=== PATIENT | male | born 1980 | race Asian ===

== ENCOUNTER 2018-10-15 00:18 | Emergency (ER) | payer BC, OTHER ==
[2018-10-15 00:26] VITALS: BP 160/99
--- NOTE | 2018-10-15 00:52 | ED Physician Documentation ---
History of Present Illness - Stated complaint Stated Complaint: THROAT PX - Chief complaint Chief Complaint: General - History obtained from History obtained from: Patient - History of Present Illness Timing: How many days ago (5) Pain level max: 0 Pain level now: 0 - Additonal information Additional information: 38-year-old male with history of hypertension here with concern about a lump on his right groin which he noticed 5 days ago and had decrease in size and today a lump on the right side of his neck. Patient expresses concern and anxiety about the lumps because he had unprotected intercourse 1-1/2 weeks ago. He denied oral sex. He went to an urgent center this week and they were not concerned about the lumps. He is here tonight because he cannot sleep and its worrying him. Denies any fever, Pain, discharge. Review of Systems Ten Systems: 10 systems reviewed and negative Constitutional: denies: Fever, Chills, Myalgias Throat: denies: Oral lesions / sores, Sore throat, Swollen tonsils GI: denies: Abdominal Pain : denies: Dysuria Skin: denies: Rash, Lesions PD PAST MEDICAL HISTORY - Past Medical History Past Medical History: No - Past Surgical History Past Surgical History: Yes Ortho: Shoulder arthroplasty HEENT: Tonsil/Adenoidectomy - Allergies Allergies/Adverse Reactions: Allergies Allergy/AdvReac Type Severity Reaction Status Date / Time No Known Drug Allergies Allergy Verified 10/15/18 00:25 - Social History Does the pt smoke?: No Smoking Status: Never smoker Does the pt drink ETOH?: Yes Does the pt have substance abuse?: No - Immunizations Immunizations are current?: Yes - POLST Patient has POLST: No PD ED PE NORMAL - Vitals Vital signs reviewed: Yes - General General: Alert and oriented X 3, No acute distress, Well developed/nourished - HEENT HEENT: Moist mucous membranes, Pharynx benign - Neck Neck: Supple, no meningeal sign, Other (1 small mildly tender right anterior cervical adenopathy) - Cardiac Cardiac: RRR, No murmur - Respiratory Respiratory: No respiratory distress, Clear bilaterally - Abdomen Abdomen: Normal bowel sounds, Soft, Non tender, Non distended - Male Male : Gauge Maker present, Other (Circumcised penis without any lesions nor tenderness. Nontender scrotum and testicle. No erythema no lesions no swelling. Right groin with almond shape mildly tender 1 lymph node approximate less than 0.5 cm in length. No erythema in the perineal area nor inguinal area. No hernia.) - Derm Derm: Warm and dry - Extremities Extremities: No deformity - Neuro Neuro: Alert and oriented X 3 - Psych Psych: Normal mood, Normal affect Results - Vitals Vitals: Vital Signs - 24 hr 10/15/18 00:22 Temperature 36.6 C Heart Rate 66 Respiratory 18 Rate Blood Pressure 160/99 H O2 Saturation 99 Oxygen O2 Source Room air PD MEDICAL DECISION MAKING - ED course Complexity details: considered differential (Viral syndrome, STD exposure), d/w patient (Discussed with patient labs will not show any results for about a couple or so days. Patient understood this and he still wants to be tested for STD. Discussed lymph nodes and how it function in her body. Instructed to follow-up with the primary doctor and get a referral to a specialist if his lymph nodes continued to enlarge and tender. If worse he will return to the emergency room.) Departure - Departure Disposition: 01 Home, Self Care Clinical Impression: Lymphadenopathy Condition: Stable Instructions: ED Chlamydia GC Poss Culture Pend Comments: Your lab work cultures are pending and if any are positive you will be hearing from us. Follow-up with your primary doctor for reevaluation in 1-2 weeks. Get a referral to a specialist if your lymph nodes continue to enlarge. If worse return to the emergency room.
[2018-10-16 10:36] LABS: HIV AG/AB 4TH GEN NON-REACTIVE (NON-REACTIVE)
== END 2018-10-15 01:04 | disposition home or self-care (01) ==
LOC: ED 00:18
DX: R59.1 Generalized enlarged lymph nodes (principal)
CPT/HCPCS: 36415; 86780; 87389; 87491; 87591; 99282

== ENCOUNTER 2022-05-07 08:00 | Outpatient (CLI) | payer MEDICAID ==
[2022-05-07 18:06] LABS: BILIRUBIN,URINE NEGATIVE (NEGATIVE); GLUCOSE, URINE (UA) NEGATIVE (NEGATIVE); KETONES,URINE (UA) NEGATIVE (NEGATIVE); LEUKOCYTE ESTERASE, URINE NEGATIVE (NEGATIVE); NITRITE,URINE NEGATIVE (NEGATIVE); OCCULT BLOOD,URINE NEGATIVE (NEGATIVE); PH,URINE 6.5 PH (5.0-7.5); PROTEIN,URINE NEGATIVE (NEGATIVE); UROBILINOGEN,URINE 0.2 (NORMAL) E.U./dL (NORMAL)
[2022-05-07 18:10] LABS: CLARITY,URINE CLEAR (CLEAR)
[2022-05-07 18:22] LABS: BACTERIA,URINE None Seen /HPF (None Seen); RBC,URINE None Seen /HPF (0-5); SQUAMOUS EPITHELIAL CELL,UR RARE Squamous (<= Few); WBC,URINE 0-3 /HPF (0-3)
[2022-05-08 00:10] LABS: CHLAMYDIA TRACHOMATIS DNA NEGATIVE (NEGATIVE); NEISSERIA GONORRHOEAE DNA NEGATIVE (NEGATIVE)
[2022-05-08 04:08] LABS: RPR Non Reactive (Non Reactive)
[2022-05-08 05:10] LABS: HCV AB 0.1 s/co ratio (0.0-0.9); HIV SCREEN 4TH GENERATION Non Reactive (Non Reactive); HSV 2 IGG TYPE SPEC <0.91 index (0.00-0.90)
[2022-05-08 20:07] LABS: HSV IGM I/II COMBINATION <0.91 Ratio (0.00-0.90)
== END 2022-05-07 23:59 | disposition home or self-care (01) ==
LOC: LAB.N 08:00
PROVIDERS: ATTEND Nurse Practitioner
DX: Z11.3 Encounter for screening for infections with a predominantly sexual mode of transmission (principal)
CPT/HCPCS: 36415; 81001; 86592; 86695; 86696; 86803; 87086; 87389; 87491; 87536; 87591; 87661

== ENCOUNTER 2023-09-07 07:45 | Outpatient (CLI) | payer BC, MEDICAID ==
[2023-09-07 21:03] LABS: CHLAMYDIA TRACHOMATIS DNA NEGATIVE (NEGATIVE); NEISSERIA GONORRHOEAE DNA NEGATIVE (NEGATIVE); TRICHOMONAS VAGINALIS DNA NEGATIVE (NEGATIVE)
[2023-09-08 07:10] LABS: HCV AB Non Reactive (Non Reactive); HIV SCREEN 4TH GENERATION Non Reactive (Non Reactive); RPR Non Reactive (Non Reactive)
[2023-09-08 08:10] LABS: HSV 2 IGG TYPE SPEC <0.91 index (0.00-0.90)
== END 2023-09-07 08:00 | disposition home or self-care (01) ==
LOC: LAB.N 07:45
PROVIDERS: ATTEND Family Medicine
DX: Z11.3 Encounter for screening for infections with a predominantly sexual mode of transmission (principal)
CPT/HCPCS: 36415; 86592; 86695; 86696; 86803; 87389; 87491; 87591; 87661